=== PATIENT | female | born 1980 | race African-American/Black ===

== ENCOUNTER 2018-04-06 00:06 | Emergency (ER) | payer OTHER ==
[~2018-04-06] VITALS: Ht 175.3 cm; Wt 94.8 kg
[~2018-04-06 00:06] MED LIST: NITROFURANTOIN100 M2 ORAL; NKM; ZOFRAN ODT4 MG ORAL
[2018-04-06 00:30] VITALS: BP 138/96
[2018-04-06] MEDS ORDERED: IBUPROFEN600 MG ORAL (00:55)
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
[2018-04-06 01:55] VITALS: BP 154/105
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
== END 2018-04-06 01:55 | disposition home or self-care (01) ==
LOC: EDBD 00:06 → EMR 00:26
DX: S00.12XA Contusion of left eyelid and periocular area, initial encounter (principal); Y04.2XXA Assault by strike against or bumped into by another person, initial encounter; Y92.9 Unspecified place or not applicable
CPT/HCPCS: 70486; 99284